=== PATIENT | female | born 1955 | race Caucasian/White ===

== ENCOUNTER 2016-09-20 06:03 | Day surgery (SDC) | payer BC ==
[~2016-09-20] VITALS: Ht 167.6 cm; Wt 83.4 kg
[~2016-09-20 06:03] MED LIST: ATOR10TA20 PO; FISH1CAP29 PO; LEVO50TA11 PO
[2016-09-20 06:18] VITALS: BP 138/77; PULSE 78; RESP 16; TEMP 98.7; O2SAT 98; Ht 167.6 cm; Wt 83.4 kg
[2016-09-20] MEDS ORDERED: PRED10TA23 PO CHEW (06:26)
[2016-09-20] MEDS ORDERED: LR 1,000 ML IV SCH (07:00)
[2016-09-20] MEDS ORDERED: LIDOCAINE 1% (10mg/ml) 2ml SDV INJ ONE (07:00)
[2016-09-20] MEDS ORDERED: PROPOFOL 500mg 50 ML IV ONE (07:24)
--- NOTE | 2016-09-20 07:35 | ANESPREOP ---
Anesthesia Record Date and Time DATE: 09/20/16 TIME: 07:34 Pre-Op Diagnosis cancer screening Proposed Surgical Procedure COLONSCOPY NPO since: 2199 Allergies: Coded Allergies: NKDA (Verified Allergy, Unknown, 09/19/16) Ht/Wt/BMI Height: 5 ' 6.00 " Weight: 83.400 kg BMI: 29.7 kg/m2 Vital Signs Date Time Temp Pulse Resp B/P Pulse Ox O2 Delivery O2 Flow Rate FiO2 09/20/16 06:18 98.7 78 16 138/77 98 Room Air Medications Inpatient Medications Current Medications Medications (Trade) Dose Ordered Sig/Meaghan Start Time Stop Time Status Last Admin Dose Admin Lactated Ringer's (Lactated Ringers) 1,000 ml @ 50 mls/hr Q20H 09/20/16 07:00 09/20/16 06:42 50 MLS/HR Atorvastatin Calcium (Lipitor) 10 Mg Tablet, 10 MG PO DAILY, (Reported) Last Taken: on 09/19/162199 Fish Oil/[place]-3 Fatty Acids (Fish Oil 1,000 Mg Capsule) 1 Cap Capsule, 1 CAP PO BID, (Reported) Last Taken: on 09/17/16 Levothyroxine Sodium (Levothyroxine Sodium) 50 Mcg Tablet, 1 TAB PO DAILY, (Reported) Last Taken: on 09/19/16 Prednisone (Prednisone) 10 Mg Tab.ds.pk, 10 MG PO CHEW TID, (Reported) Last Taken: on 09/19/16 Currently on Beta Michelle: No Medical/Surgical History Anesthesia PMH: Reports: Hyperlipidemia, Thyroid Disease (HYPOTHYROIDISM ), Denies: *Angina, *Diabetes, *Dyspnea, *Hypertension, *TX, Anesthesia Reactions ( NO AIRWAY ISSUES ), Arthritis, Asthma, CHF, COPD, CVA/Stroke/TIA, Cancer, Clotting Problems, Deep Vein Thrombosis, Glaucoma, Headaches, Hepatitis, Hiatal Hernia, Malignant Hyperthermia, Pneumonia, Reflux, Renal Disease, Rheumatic Fever, Seizures, Sleep Apnea, Tuberculosis Smoking Status: Never smoker Has pt. smoked today?: No Use Chewing Tobacco?: No Second Hand Exposure: No Substance Use Type: does not use Alcohol Intake: none HX of Last Menstrual Period: HYST. Past Surgical History Orthopedic Surgeries: No Abdominal Surgeries: No Genitourinary Surgeries: No Cardiac Surgeries: No Endocrine Surgeries: No Reproductive Surgeries: Yes - YULIET/BSO Neurological Surgeries: No Ear Surgeries: No Nose Surgeries: No Throat Surgeries: No Other Surgeries: Yes - COLONOSCOPY Anesthesia Adverse Reactions: FOUND none Family Hx of Anesthesia Advers: none Hx of Motion Sickness: No Pertinent Findings EKG Rhythm: Sinus Rhythm Physical Exam Respiratory: Lungs clear Cardiovascular: FOUND Regular rate, rhythm, FOUND No murmur Airway Assessment Mallampati Score: II TMD: 3 Fingerbreadths Neck Extension: Good Teeth: Chipped Teeth/Crowns Overall Assessment: No Airway Concerns ASA: 2 Plan Anesthesia Plan: TIVA Discussion Discussed risks/options/alternatives of anesthesia and questions answered. Patient consents. Nursing pain assessment noted. Present: Family Member Attestation Statement Prior to the delivery of any anesthetic medication, I examined the patient, developed the plan, obtained the patient's consent and discussed the risk and benefits of the procedure with the patient/guardian. ALLY SHULTZ CRNA September 20, 2016 07:35
[2016-09-20] MEDS ORDERED: GLYCOPYRROLATE 0.4mg/2ml INJECTION ONE (07:55)
[2016-09-20 08:12] VITALS: BP 84/48; PULSE 92; RESP 18; TEMP 97.7; O2SAT 97
--- NOTE | 2016-09-20 08:21 | ANESPO ---
Post-Op Note Date 09/20/16 Time: 08:21 Status Pt Participated in Evaluation: Pt participated in person Vital Signs Date Time Temp Pulse Resp B/P Pulse Ox O2 Delivery O2 Flow Rate FiO2 09/20/16 06:18 98.7 78 16 138/77 98 Room Air Respiratory Function: Airway patent, Regular respirations Cardiovascular Function: Regular pulse Mental Status: Alert/oriented Pain Level Intensity: 0 Hydration: Taking po fluids Complications during Recovery None apparent Follow-Up Instructions Instructions Per Surgeon ALLY SHULTZ CRNA September 20, 2016 08:21
[2016-09-20 08:27] VITALS: BP 107/61; PULSE 83; RESP 18; O2SAT 96
[2016-09-20 08:42] VITALS: BP 109/62; PULSE 78; RESP 18; O2SAT 97
--- NOTE | 2016-09-20 12:53 | OPNOTEF ---
[facility] DATE: 09/20/2016 PREOPERATIVE DIAGNOSIS: Screening colonoscopy and family history of colon cancer - mother. POSTOPERATIVE DIAGNOSIS: Screening colonoscopy and family history of colon cancer - mother, within normal limits. PROCEDURE: Colonoscopy. No biopsies taken. SURGEON: Geovany Rodriguez MD ANESTHESIA: TIVA PROCEDURE NOTE: The patient was prepped with Colyte the evening prior to the procedure. She was placed in the left lateral position. After a benign digital rectal exam, the colonoscope was inserted and advanced to the cecum with cecal landmarks identified. The cecum, ascending colon, transverse colon and sigmoid showed no evidence of hemorrhage, mass lesions, ulcerations, polyps, inflammatory changes or diverticular disease. The rectum and anus were clear. The colon was suctioned and the scope removed with the patient tolerating the procedure well. She was stable post colonoscopy. Followup recommended in five years for screening given her family history, with followup sooner as clinically indicated. TUCKER
== END 2016-09-20 08:50 | disposition home or self-care (01) ==
LOC: NSC 06:03
DX: Z12.11 Encounter for screening for malignant neoplasm of colon (principal); Z80.0 Family history of malignant neoplasm of digestive organs; E78.00 Pure hypercholesterolemia, unspecified; E03.9 Hypothyroidism, unspecified; N95.2 Postmenopausal atrophic vaginitis; Z79.899 Other long term (current) drug therapy
CPT/HCPCS: 45378; J2704; J7120